=== PATIENT | female | born 1965 | race Two or more races ===

== ENCOUNTER 2024-09-02 11:14 | Emergency (ER) | payer MEDICARE, MEDICAID, SELFPAY ==
[2024-09-02 11:15] VITALS: BMI 27.3
[2024-09-02 12:20] VITALS: BP 111/65; PULSE 98; RESP 20; TEMP 37.1; O2SAT 95; BMI 27.1
--- NOTE | 2024-09-02 12:40 | XR_ITS ---
Examination: Venous duplex lower extremity sonogram, bilateral. Date and time of exam: September 02, 2024 1334 hours INDICATIONS: Bilateral leg swelling pain and discoloration beginning 3 days ago Technique: Multiple sonographic images of the deep venous system have been obtained. B-mode/2-D grayscale imaging of vascular structures and Doppler spectral analysis (waveforms) and color performed Both legs are examined. Findings: Deep venous systems do not demonstrate abnormal echogenicity. All visualized deep veins exhibit compressibility. All visualized deep veins exhibit augmentation. Impression: Negative for deep vein thrombosis
--- NOTE | 2024-09-02 12:40 | PD.EDRME ---
Rapid Medical Screening Exam RME Arrival date/time: 09/02/24 11:14 59-year-old female presents emergency department complains of bilateral leg pain Chief Complaint: Extremity Problem,Nontraumatic Vital signs: Vital Signs Temperature 98.7 F 09/02/24 12:20 Pulse Rate 98 09/02/24 12:20 Respiratory Rate 20 09/02/24 12:20 Blood Pressure 111/65 09/02/24 12:20 Pulse Oximetry (%) 95 09/02/24 12:20 Oxygen Delivery Method Room Air 09/02/24 12:20
[2024-09-02 13:32] LABS: Basophils # (Auto) 0.1 Thou/mm3 (0.0-0.2); Basophils % (Auto) 0 % (0-2.5); Eosinophils # (Auto) 0.1 Thou/mm3 (0.0-0.5); Eosinophils % (Auto) 0 % (0-10); Hematocrit 39.1 % (36.0-46.0); Hemoglobin 12.4 g/dL (12.0-16.0); Immature Granulocytes % (Auto) 0 % (0-0); Immature Granulocytes Auto 0.05 Thou/mm3 (0.00-0.00); Lymphocytes # (Auto) 1.6 Thou/mm3 (1.0-4.8); Lymphocytes % (Auto) 11 % (10-50); Mean Corpuscular HGB Conc 31.7 g/dl (31.0-37.0); Mean Corpuscular Hemoglobin 29.1 pg (25.0-35.0); Mean Corpuscular Volume 92 fL (80-100); Monocytes # (Auto) 1.5 Thou/mm3 (0.0-0.8); Monocytes % (Auto) 11 % (0-12); Neutrophils % (Auto) 77 % (37-80); Nucleated Red Blood Cell % 0 /100 WBC (0); Platelet Count 296 Thou/mm3 (140-440); RDW Standard Deviation 48.4 fL (36.4-46.3); Red Blood Count 4.26 Miln/mm3 (4.00-5.20); White Blood Count 14.3 Thou/mm3 (3.6-11.0)
[2024-09-02 13:51] LABS: Prothrombin Time 10.9 Seconds (9.0-12.2)
[2024-09-02 13:53] LABS: Alanine Aminotransferase 13 U/L (10-49); Albumin, Serum 4.5 gm/dL (3.4-4.8); Albumin/Globulin Ratio 1.4 (1.2-2.2); Alkaline Phosphatase 93 U/L (46-116); Anion Gap 12 (7-16); Aspartate Amino Transferase 11 U/L (0-34); BUN/Creatinine Ratio 8 Ratio (12-20); Bilirubin,Total 0.4 mg/dL (0.3-1.2); Blood Urea Nitrogen 51 mg/dL (9-23); Calcium 9.7 mg/dL (8.3-10.6); Calcium (Corrected) 9.7 mg/dL (8.5-10.1); Carbon Dioxide 26.9 mMol/L (20.0-31.0); Chloride 97 mMol/L (98-107); Creatinine (Component) 6.5 mg/dL (0.6-1.3); Estimated Creatinine Clearance 8.3 mL/min (>60); Globulin 3.3 gm/dL (2.3-3.5); Glucose 181 mg/dL (74-106); Osmolality,Calculated 290 (275-295); Potassium 3.5 mMol/L (3.4-5.1); Sodium 136 mMol/L (136-145); Total Protein 7.8 gm/dL (5.7-8.2); eGFR 7 See Note
--- NOTE | 2024-09-02 14:31 | PD.EDEXREM ---
ED Extremity Problem RME/HPI General Chief complaint: Extremity Problem,Nontraumatic Stated complaint: LANDON LEG PAIN WITH BUMPS Time Seen by Provider: 09/02/24 14:31 Arrival date/time: 09/02/24 11:14 59 female present to emergency room with c/o of bilateral lower leg pain for 1 week. pt report generalized weakness today. pt is currently dialysis patient T-T-S. LOCATION: legs SEVERITY: Symptoms are described as being severe with limitations on activities of daily living QUALITY: Symptoms are described as being dull or achy CONTEXT: unknown DURATION/TIMING: The symptoms started approximately 7 day ago and have been constant this then. ASSOCIATED SYMPTOMS: The patient is unable to identify any other associated symptoms. MODIFYING FACTORS: The patient is unable to identify any alleviating or aggravating symptoms. PERTINENT ROS: no fevers, no headache, no neck or chest pain, no unexplained nausea or vomiting, no focal neurological deficits REVIEW OF SYSTEMS: See History of Present Illness - with the exception of those mentioned in the history of present illness, all other systems reviewed and reported as negative GENERAL: In general the patient is awake, interactive, in an emergency department gurney. HEAD/EYES/EARS/NOSE/THROAT: normo-cephalic, atraumatic, mucus membranes are moist, anicteric, palpebral conjunctiva is pink, trachea is midline. CARDIOVASCULAR: regular rate and regular rhythm, no murmurs, heart sounds are not distant, strong pulses in all four extremities that are equal and symmetric bilateral upper and lower extremities, normal capillary refill. CHEST/PULMONARY: normal chest rise and fall, good air movement, clear to auscultation bilaterally, normal inspiratory to expiratory ratios without evidence of respiratory distress. NECK: No midline/Paraspinal tenderness, no step off ROM/Strenght intact No Kernig and bruzinski sign. No trauma ABDOMEN: soft, not tender, no masses appreciated BACK: normal range of motion without pain. NEUROLOGICAL: cranio-facial features are symmetric, moves all four extremities equally without obvious limitations or weakness. EXTREMITY: no tenderness to palpation over the long bones or large joints of the bilateral upper and lower extremities, no joint swelling, no joint erythema, no signs of trauma, no unilateral leg swelling SKIN: warm, dry, well-perfused, no jaundice, no rash, no telangiectasias or petechia. PSYCH: calm, cooperative, no evidence of psychosis or agitation RME / HPI RME / HPI Narrative: 09/02/24 11:14 59-year-old female presents emergency department complains of bilateral leg pain Related Data Home Medications ?Medication ?Instructions ?Recorded ?Confirmed atorvastatin 80 mg tablet 80 mg PO DAILY 02/03/21 10/30/21 escitalopram oxalate 10 mg tablet 10 mg PO DAILY 02/03/21 10/30/21 hydralazine 25 mg tablet 25 mg PO Q8H 02/03/21 10/30/21 vitamin B complex-vitamin C-folic 1 tab PO DAILY 02/03/21 10/30/21 acid 0.8 mg tablet (Barbie-Eloise) calcium acetate(phosphat bind) 667 667 mg PO QDAY 10/30/21 10/30/21 mg capsule ferrous sulfate 325 mg (65 mg 325 mg PO QDAY 10/30/21 10/30/21 iron) tablet (iron) nifedipine 30 mg tablet,extended 30 mg PO QDAY 10/30/21 10/30/21 release Allergies Allergy/AdvReac Type Severity Reaction Status Date / Time No Known Allergies Allergy Verified 09/02/24 11:18 Course Quality Measures none Orders Category Date Time Status Bedside Influenza A&B Antigen Test NOW Care 09/02/24 14:[address] head/brain wo con Stat Exams 09/02/24 14:52 Ordered US venous doppler LE BI Stat Exams 09/02/24 12:40 Completed CBC Stat Lab 09/02/24 12:54 Completed Comprehensive Metabolic Panel Stat Lab 09/02/24 12:54 Completed Partial Thromboplastin Time Stat Lab 09/02/24 12:54 Completed Prothrombin Time with INR Stat Lab 09/02/24 12:54 Completed HYDROcodone*/APAP 5/325 [Bridger 5/325] Med 09/02/24 14:57 Discontinued 1 tab PO X1 ONE Vital Signs Vital signs: Vital Signs Temperature 98.7 F 09/02/24 12:20 Pulse Rate 98 09/02/24 12:20 Respiratory Rate 20 09/02/24 12:20 Blood Pressure 111/65 09/02/24 12:20 Pulse Oximetry (%) 95 09/02/24 12:20 Oxygen Delivery Method Room Air 09/02/24 12:20 Extremity Problem Patient data External records reviewed:: [facility] previous records Clinical information provided by:: none Social determinants that could affect healthcare access:: none Patient has the following chronic illnesses:: HDL How is presenting disease/condition affected by chronic disease/condition?: exacerbated by Evaluation data The following diagnostics were reviewed and interpreted by me:: lab results and radiology exam(s) Lab and/or radiology exams considered but not ordered:: none Interpretation Summary: US: Findings: Deep venous systems do not demonstrate abnormal echogenicity. All visualized deep veins exhibit compressibility. All visualized deep veins exhibit augmentation. Impression: Negative for deep vein thrombosis cbc: wnl cmp : kidney failure worsen then previous labs Medications / Prescriptions Medications or Prescriptions considered but not ordered:: none Medication administrations:: Medication Administration History Discontinued Medications Hydrocodone Bitart/Acetaminophen (Hydrocodone/Apap 5/325 Tablet) 1 tab PO X1 ONE Stop: 09/02/24 14:58 Last Admin: 09/02/24 15:01 Dose: 1 tab Documented By: RUFINA none Consultations Consultation(s) initiated? (list below): No Diagnosis Extremity Problem Differential Diagnosis: cellulitis, superficial thrombophlebitis, deep venous thrombosis of upper extremity, lower extremity edema, deep vein thrombosis of lower extremity and other (kidney failure (ESRD) ) Most likely diagnosis given after review of the tests above:: leg pain Admission Indicated Admission indicated?: not indicated Admission Request Was there a request for admission?: No Disposition Plan Disposition Plan: other (specify) (eloped) Discharge Plan Plan Patient Disposition: Elopement Prescriptions/Referrals Prescriptions/Med Rec: No Action nifedipine 30 mg tablet extended release 30 mg PO QDAY Patient Comments: TAKE 1 TABLET BY MOUTH ONCE DAILY ON NON - DIALYSIS DAYS ferrous sulfate [iron] 325 mg (65 mg iron) Tablet 325 mg PO QDAY calcium acetate(phosphat bind) 667 mg capsule 667 mg PO QDAY Patient Comments: TAKE 1 CAPSULE BY MOUTH THREE TIMES DAILY WITH MEALS atorvastatin 80 mg tablet 80 mg PO DAILY hydralazine 25 mg tablet 25 mg PO Q8H Barbie-Eloise 0.8 mg tablet 1 tab PO DAILY escitalopram oxalate 10 mg tablet 10 mg PO DAILY Patient Comments: TAKE 1 TABLET BY MOUTH ONCE DAILY FOR 90 DAYS Referrals: No Primary/Family,Physician [Primary Care Provider] - In 1 week Problem List Clinical Impression: Acute leg pain Patient/Caregiver Discharge Instructions Education Materials: ED Pain, Acute, Uncertain Cause Print Language: Yi
[2024-09-02 14:41] VITALS: BP 121/78; PULSE 87; RESP 20; TEMP 37.1; O2SAT 95
[2024-09-02] MEDS: HYDROcodone/APAP 5/325 TABLET 1 TAB PO (15:01)
--- NOTE | 2024-09-02 17:41 | PC.NURSE ---
CALLED PT IN LOBBY X2 NO ANSWER. PT WAS ALSO CALLED OUTSIDE ALSO NO ANSWER.
--- NOTE | 2024-09-02 18:09 | PC.NURSE ---
CALLED FROM LOBBY NO ANSWER
== END 2024-09-02 18:10 | disposition left against medical advice (07) ==
PROVIDERS: Nurse Practitioner Primary Care; Emergency Provider Emergency Medicine
DX: M79.661 Pain in right lower leg (principal); M79.662 Pain in left lower leg; R53.1 Weakness
CPT/HCPCS: 36415; 80053; 85025; 85610; 85730; 87400; 87811; 93970; 99284; A9270

== ENCOUNTER 2025-01-13 23:15 | Emergency (ER) | payer MEDICARE, MEDICAID, SELFPAY ==
[2025-01-13 23:17] VITALS: BMI 29.8
[2025-01-13 23:26] VITALS: BP 139/61; PULSE 90; RESP 13; TEMP 37.5; O2SAT 97
--- NOTE | 2025-01-13 23:44 | PD.EDRECHK ---
ED Recheck Abnl Lab Rx-RME/HPI General Chief Complaint: General Adult/Misc Complain Stated Complaint: BLEEDING FROM FISTULA REPLACEMENT SITE Time Seen by Provider: 01/13/25 23:29 Arrival date/time: 01/13/25 23:15 RME / HPI RME / HPI narrative: Dr. Perez?s Main ED Evaluation: 59yo female with a history of seizures, HTN, HLD, renal disease on HD, DM presents to the ED for a chief complaint of bleeding to the fistula site. 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 Patient denies any trauma or injuries. Patient denies any other associated symptoms. NKA. Related Data Home Medications ?Medication ?Instructions ?Recorded ?Confirmed atorvastatin 80 mg tablet 80 mg PO DAILY 02/03/21 10/30/21 escitalopram oxalate 10 mg tablet 10 mg PO DAILY 02/03/21 10/30/21 hydralazine 25 mg tablet 25 mg PO Q8H 02/03/21 10/30/21 vitamin B complex-vitamin C-folic 1 tab PO DAILY 02/03/21 10/30/21 acid 0.8 mg tablet (Barbie-Eloise) calcium acetate(phosphat bind) 667 667 mg PO QDAY 10/30/21 10/30/21 mg capsule ferrous sulfate 325 mg (65 mg 325 mg PO QDAY 10/30/21 10/30/21 iron) tablet (iron) nifedipine 30 mg tablet,extended 30 mg PO QDAY 10/30/21 10/30/21 release Allergies Allergy/AdvReac Type Severity Reaction Status Date / Time No Known Allergies Allergy Verified 01/13/25 23:26 Review of Systems Review of Systems Systems Reviewed: All systems reviewed, normal except as documented Past Medical History Past Medical History NEUROLOGIC: Positive Neurological Disorders and Seizures CARDIAC: Positive Cardiac Disorders, Hypercholesterolemia and Hypertension; Negative Congestive Heart Failure RESPIRATORY: Negative Chronic Obstructive Pulmonary Disease (COPD) GASTROINTESTINAL: Positive Gastrointestinal Disorders and Gastrointestinal Bleed GENITOURINARY: Positive Genitourinary Disorders, Renal Disease and Dialysis REPRODUCTIVE: Negative Pelvic Inflammatory Disease MUSCULOSKELETAL: Negative Musculoskeletal Disorders ENDOCRINE: Positive Endocrine Disorders and Diabetes Mellitus Type 2; Negative Diabetes Mellitus Type 1 HEMATOLOGIC: Negative Blood Disorders OTHER HISTORY: Positive Blood Transfusions; Negative Autoimmune Disease, Blood Transfusion Reaction or Anesthesia Reactions Family History FAMILY HISTORY: Negative Family Psychiatric Problems, Family Respiratory Disorders, Family Cardiac Disorders, Family Gastrointestinal Problems, Family Cancer, Family Surgery or Family Anesthesia Reaction Surgical History SURGICAL: Negative Cardiac Surgery, Endocrine Surgery or Ear Surgery Social History SMOKING STATUS: Never smoker ED Exam Narrative Physical exam: GEN. APPEARANCE: The patient is alert awake oriented X-3 in no distress, lying down comfortably, does not look ill/toxic. Patient has good eye contact. Patient is cooperative. VITALS: All vitals were reviewed and the pulse ox is 97% on room air which is normal according to my interpretation. HEENT: Normocephalic, atraumatic. Pupils are equal and reactive. Oral mucosa is moist. Patent Nares NECK: Supple, nontender, no thyromegaly, no meningismus, no JVD CHEST: Symmetrical, atraumatic, and with equal expansion , Nontender on palpation no deformity and no crepitus. CARDIOVASCULAR: Heart regular rhythm no murmur or gallop rub or extra beats. LUNGS: Clear to auscultation bilaterally with symmetrical chest rise. No laboring tachypnea or wheezing. No intercostal subcostal retraction. No rales and no rhonchi. ABDOMEN: Soft, flat, nontender to palpation, no guarding or rebound tenderness. There are no abnormal masses palpated. Active and normal bowel sounds. EXTREMITIES: Nontender. No edema. No cyanosis. Patient is able to move all 4 extremities well, with full ROM and good CSM. SKIN: Warm and dry, no jaundice or rashes noted. Fistula to the LUE is bleeding. MUSCULOSKELETAL: No lumbar or midline bony tenderness. There is no CVA tenderness. No paraspinal muscle spasm or tenderness. NEURO: Patient is RICHARDS x 4, Cranial nerves II through XII grossly intact. There is no focal neurologic deficits noted. 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 PSYCHIATRIC: Patient is in normal mood and affect. Course Quality Measures none Orders Category Date Time Status CT Screening NOW Care 01/14/25 00:24 Active IV [Insert IV] STAT Care 01/13/25 23:[address] angio UE LT Stat Exams 01/14/25 00:24 Ordered CBC Stat Lab 01/13/25 23:49 Completed CMP [Comprehensive Metabolic Panel] Stat Lab 01/13/25 23:49 Completed Hemoglobin and Hematocrit Stat Lab 01/14/25 01:45 Completed Prothrombin Time with INR Stat Lab 01/13/25 23:49 Completed Type and Screen Stat Lab 01/13/25 23:49 Completed Vital Signs Vital signs: Vital Signs Temperature 99.5 F 01/13/25 23:26 Pulse Rate 90 01/13/25 23:26 Respiratory Rate 13 01/13/25 23:26 Blood Pressure 139/61 H 01/13/25 23:26 Pulse Oximetry (%) 97 01/13/25 23:26 Oxygen Delivery Method Room Air 01/13/25 23:26 Recheck / Abnormal Lab / Rx MDM Narrative MDM Narrative:: Scribe Attestation: 01/13/25 - Bridgett, Jennifer Suazo am scribing for and in the presence of Dr. Perez. Pressure bandage applied. CT angio of the LUE ordered. 0125: Fistula site is still oozing blood. Will consult with the vascular surgeon who performed the fistula replacement. 0130: Spoke with Dr. Goodson from vascular surgery at [facility] at great length about this case, especially how the blood soaked through the gauze and pressure dressing. He does not recommend doing the CTA of the LUE at this time. States this is normal and to be expected for the patient to bleed for the next couple of days and soaked through her gauze. States he will have the patient follow-up with him in his office today. Recommends repeating HnH and calling him back if it continues to drop. Once patient gets dialysis the bleeding will improve as well. Repeat HnH is 9.1/28.1. Patient is stable to be discharged home. Patient is due for dialysis today. Also advised extensively that it is important that she sees her surgeon Dr. Goodson today first thing in the morning. And complete dialysis. On multiple reevaluations, patient without evidence of pulsatile bleed however does have slow bloody ooze. Per patient's vascular surgeon this is to be expected. Patient data External records reviewed:: [facility] previous records (Per chart review, patient was seen here on 09/02/24 for leg pain.) Clinical information provided by:: patient and EMS Social determinants that could affect healthcare access:: housing (SNF resident) Patient has the following chronic illnesses:: seizures, HTN, HLD, renal disease on HD, DM How is presenting disease/condition affected by chronic disease/condition?: uneffected by Evaluation data The following diagnostics were reviewed and interpreted by me:: lab results Lab and/or radiology exams considered but not ordered:: none Interpretation Summary: WBC count 17.5, HnH 9.8/30.0, Platelets normal at 215, Potassium 5.2, Creatinine 7.6, BUN 45, Glucose 169. Repeat HnH is 9.1/28.1. Medications / Prescriptions Medications or Prescriptions considered but not ordered:: none Medication administrations:: none Consultations Consultation(s) initiated? (list below): No Diagnosis Recheck Differential Diagnosis: other (fistula hematoma, wound dehiscence, symptomatic anemia, fluid overload) Most likely diagnosis given after review of the tests above:: see clinical impression below Admission Indicated Admission indicated?: not indicated Admission Request Was there a request for admission?: No Disposition Plan Disposition Plan: Discharge Discharge Attestation Discharge Attestation: The patient and all family members were given an opportunity to ask questions and understood the discharge instructions. Discharge instructions specifically effects, indications for sooner follow up or return to the emergency department, and the expected course of current diagnosis. Patient condition: Stable Critical Care Time Critical Care Time Critical Care Time: Yes Total Critical Care Time (min.): 35 Attestation: The high probability of sudden, clinically significant deterioration in the patient?s condition required the highest level of my preparedness to intervene urgently. The services I provided to this patient were to treat and/or prevent clinically significant deterioration. Services included the following: chart data review, reviewing nursing notes and/or old charts, documentation time, chain sales consultant collaboration regarding findings and treatment options, medication orders and management, direct patient care, vital sign assessments and ordering, interpreting and reviewing diagnostic studies and lab tests. Aggregate critical care time includes only time during which I was engaged in work directly related to the patient?s care, as described above, whether at bedside or elsewhere in the Emergency Department. It did not include time spent performing other reported procedures or the services of residents, students, nurses or physician assistants. Discharge Plan Plan Patient Disposition: HOME (Self Care) Prescriptions/Referrals Prescriptions/Med Rec: No Action nifedipine 30 mg tablet extended release 30 mg PO QDAY Patient Comments: TAKE 1 TABLET BY MOUTH ONCE DAILY ON NON - DIALYSIS DAYS ferrous sulfate [iron] 325 mg (65 mg iron) Tablet 325 mg PO QDAY calcium acetate(phosphat bind) 667 mg capsule 667 mg PO QDAY Patient Comments: TAKE 1 CAPSULE BY MOUTH THREE TIMES DAILY WITH MEALS atorvastatin 80 mg tablet 80 mg PO DAILY hydralazine 25 mg tablet 25 mg PO Q8H Barbie-Eloise 0.8 mg tablet 1 tab PO DAILY escitalopram oxalate 10 mg tablet 10 mg PO DAILY Patient Comments: TAKE 1 TABLET BY MOUTH ONCE DAILY FOR 90 DAYS Referrals: Giovanni Perez [Primary Care Provider] - In 1 week Problem List Clinical Impression: Hemorrhage of arteriovenous fistula Patient/Caregiver Discharge Instructions Discharge Activity: activity as tolerated Other Activity Instructions:: Por favor ir a la clinica de grier cirujano el Doctor Ben fish. El Doctor Ben dice que es normal que tenga hemorragia de grier herida, entonces por favor cambiar la gaza con cuidado en casa. Si la hemorragia se empeora por favor regresar al departamento de emergencias. Print Language: Dominican Stand Alone Forms: [place] Award Info., Patient Portal Info Letter
[2025-01-14 00:14] LABS: Basophils # (Auto) 0.1 Thou/mm3 (0.0-0.2); Basophils % (Auto) 0 % (0-2.5); Eosinophils % (Auto) 0 % (0-10); Hemoglobin 9.8 g/dL (12.0-16.0); Immature Granulocytes % (Auto) 0 % (0-0); Immature Granulocytes Auto 0.05 Thou/mm3 (0.00-0.00); Lymphocytes # (Auto) 1.1 Thou/mm3 (1.0-4.8); Lymphocytes % (Auto) 6 % (10-50); Mean Corpuscular HGB Conc 32.7 g/dl (31.0-37.0); Mean Corpuscular Hemoglobin 29.9 pg (25.0-35.0); Mean Corpuscular Volume 92 fL (80-100); Monocytes # (Auto) 1.3 Thou/mm3 (0.0-0.8); Monocytes % (Auto) 7 % (0-12); Neutrophils % (Auto) 86 % (37-80); Nucleated Red Blood Cell % 0 /100 WBC (0); Platelet Count 215 Thou/mm3 (140-440); RDW Standard Deviation 47.9 fL (36.4-46.3); Red Blood Count 3.28 Miln/mm3 (4.00-5.20); White Blood Count 17.5 Thou/mm3 (3.6-11.0)
[2025-01-14 00:33] VITALS: BP 112/60; PULSE 86; RESP 16; TEMP 37.1; O2SAT 98
[2025-01-14 00:35] LABS: Alanine Aminotransferase 15 U/L (10-49); Albumin, Serum 4.2 gm/dL (3.4-4.8); Albumin/Globulin Ratio 1.6 (1.2-2.2); Alkaline Phosphatase 100 U/L (46-116); Anion Gap 16 (7-16); Aspartate Amino Transferase 19 U/L (0-34); BUN/Creatinine Ratio 6 Ratio (12-20); Bilirubin,Total 0.3 mg/dL (0.3-1.2); Blood Urea Nitrogen 45 mg/dL (9-23); Calcium 8.8 mg/dL (8.3-10.6); Calcium (Corrected) 8.8 mg/dL (8.5-10.1); Carbon Dioxide 21.4 mMol/L (20.0-31.0); Chloride 102 mMol/L (98-107); Creatinine (Component) 7.6 mg/dL (0.6-1.3); Estimated Creatinine Clearance 7.1 mL/min (>60); Globulin 2.6 gm/dL (2.3-3.5); Glucose 169 mg/dL (74-106); Osmolality,Calculated 293 (275-295); Potassium 5.2 mMol/L (3.4-5.1); Sodium 139 mMol/L (136-145); Total Protein 6.8 gm/dL (5.7-8.2); eGFR 6 See Note
[2025-01-14 00:54] LABS: Prothrombin Time 11.1 Seconds (9.0-12.2)
[2025-01-14 01:54] LABS: Hematocrit 28.1 % (36.0-46.0); Hemoglobin 9.1 g/dL (12.0-16.0)
[2025-01-14 02:25] VITALS: BP 139/72; PULSE 91; RESP 17; TEMP 36.3; O2SAT 100
--- NOTE | 2025-01-14 02:50 | PC.NURSE ---
MD HAWKINS INFORMED OF PT FISTULA CONTINUOUS BLEEDING, AND SOAKING THROUGH GAUZE. PER PT IS DC'D BUT WILL STAY IN ER FOR OBS TILL AM. PT TO SEE DR PHELAN SURGEON THIS AM WHO WILL BE ADDRESSING ISSUE. SISTER AT BED STATES OKAY WITH PLAN OF CARE. PT CURRENTLY STABLE, NO IN NO SIGNS OF DISTRESS. RESPIRATION EVEN AND UNLABORED. VSS. A/OX4 GCS15.
[2025-01-14 06:20] VITALS: BP 113/76; PULSE 100; RESP 15; TEMP 37.3; O2SAT 100
== END 2025-01-14 06:40 | disposition home or self-care (01) ==
PROVIDERS: Emergency Provider Emergency Medicine; PCP Family Medicine
DX: T82.838A Hemorrhage due to vascular prosthetic devices, implants and grafts, initial encounter (principal); Y83.2 Surgical operation with anastomosis, bypass or graft as the cause of abnormal reaction of the patient, or of later complication, without mention of misadventure at the time of the procedure
CPT/HCPCS: 36415; 80053; 85014; 85018; 85025; 85610; 86850; 86900; 86901; 99283

== ENCOUNTER → 2025-02-13 | Outpatient (CLI) | payer MEDICARE, MEDICAID, SELFPAY ==
--- NOTE | 2025-02-13 14:46 | XR_ITS ---
Examination: PA lateral chest 2 views TECHNIQUE: Upright PA lateral chest 2 views Date and time: February 13, 2025 1459 hours Comparison November 20, 2023 INDICATIONS: Positive PPD FINDINGS: Normal heart size Lungs are clear Left internal jugular dialysis catheter tips SVC IMPRESSION: No active disease No radiographic findings of tuberculosis
== END | disposition home or self-care (01) ==
LOC: CDIM 14:24
PROVIDERS: PCP Family Medicine; Referring Provider Internal Medicine; Visit Provider Internal Medicine
DX: R76.11 Nonspecific reaction to tuberculin skin test without active tuberculosis (principal)
CPT/HCPCS: 71046